=== PATIENT | female | born 1995 | race Caucasian/White ===

== ENCOUNTER 2022-06-20 17:25 | Emergency (ER) | payer BC ==
[~2022-06-20] VITALS: Ht 165.1 cm; Wt 52.0 kg
[2022-06-20 21:00] VITALS: BP 113/71
== END 2022-06-20 21:10 | disposition home or self-care (01) | DRG 552 ==
LOC: ED 17:25
DX: M54.9 Dorsalgia, unspecified (principal); R07.9 Chest pain, unspecified; M79.601 Pain in right arm; V80.010A Animal-rider injured by fall from or being thrown from horse in noncollision accident, initial encounter

== ENCOUNTER 2023-06-25 16:43 | Emergency (ER) | payer BC ==
[~2023-06-25] VITALS: Ht 165.1 cm; Wt 52.0 kg
[2023-06-25] VITALS (12 sets, daily range): BP systolic 92–116; BP diastolic 58–76
[2023-06-25 17:46] LABS: BASO% 0.5 % (0-3); EOS% 0.9 % (0-8); HEMATOCRIT 39.9 % (37.0-47.0); HEMOGLOBIN 12.7 g/dl (12.0-16.0); IMMATURE GRANULOCYTES 0.1 % (0.0-5.0); LYMPH% 27.9 % (15-41); MEAN CELL VOLUME 89.3 fL CALC (80.0-100.0); MEAN CORPUSCULAR HGB 28.4 pG CALC (26.0-32.0); MEAN CORPUSCULAR HGB CONC 31.8 g/dL CAL (32.0-36.0); NEUT# 5.84 thou/uL (2.00-7.15); NEUT% 62.6 % (42-76); RED BLOOD COUNT 4.47 mill/uL (4.20-5.60); RED CELL DISTRI WIDTH 13.6 % (11.5-15.5)
[2023-06-25 18:05] LABS: ALBUMIN 4.4 g/dL (3.2-5.0); ALKALINE PHOSPHATASE 59 u/l (38-126); ANION GAP 11 (6-22 (CALC)); BILIRUBIN, TOTAL 0.7 mg/dL (0.02-1.3); BUN 11 mg/dL (7-17); BUN/CREATININE RATIO 12 (12-20 (CALC)); CARBON DIOXIDE 29 mmol/l (22-30); CHLORIDE 104 mmol/l (95-108); CREATININE 0.9 mg/dL (0.5-1.0); GFR FOR AFR.AMER. > 60 ML/MIN (>=60 (CALC)); GFR OTHER RACES > 60 ML/MIN (>=60 (CALC)); LIPASE 124 u/l (23-300); POTASSIUM 3.2 mmol/l (3.5-5.1); SGOT/AST 48 u/l (14-36); SODIUM 141 mmol/l (137-146); TOTAL PROTEIN 7.1 g/dL (6.3-8.2)
== END 2023-06-25 21:15 | disposition home or self-care (01) | DRG 605 ==
LOC: ED 16:43
PROVIDERS: Family Medicine
DX: S30.0XXA Contusion of lower back and pelvis, initial encounter (principal); S20.229A Contusion of unspecified back wall of thorax, initial encounter; V80.010A Animal-rider injured by fall from or being thrown from horse in noncollision accident, initial encounter; Y93.52 Activity, horseback riding
CPT/HCPCS: Q9967

== ENCOUNTER 2023-11-13 23:12 | Emergency (ER) | payer BC ==
[~2023-11-13] VITALS: Ht 165.1 cm; Wt 50.0 kg
[2023-11-13 23:35] VITALS: BP 120/68
[2023-11-13 23:45] VITALS: BP 103/74
[2023-11-13] MEDS ORDERED: DEX PO (23:49)
[2023-11-13] MEDS ORDERED: AMPHETAMINE PO (23:49)
[2023-11-13] MEDS ORDERED: KETOROLAC TROMETHAMINE 30 MG/ML SDV IV ONE (23:55)
[2023-11-13] MEDS ORDERED: DIATRIZOATE MEGLUMINE & SODIUM 30 ML/BTL BTL PO ONE (23:55)
[2023-11-13] MEDS ORDERED: PROMETHAZINE HCL 25 MG/ML AMP IV ONE (23:55)
[2023-11-13] MEDS ORDERED: SODIUM CHLORIDE 0.9% 1,000 ML IV STA (23:58)
[2023-11-14] VITALS (15 sets, daily range): BP systolic 81–110; BP diastolic 51–78
[2023-11-14 00:42] LABS: BASO% 0.7 % (0-3); EOS% 1.5 % (0-8); IMMATURE GRANULOCYTES 0.2 % (0.0-5.0); LYMPH% 37.3 % (15-41); MEAN CELL VOLUME 88.3 fL CALC (80.0-100.0); MEAN CORPUSCULAR HGB 28.7 pG CALC (26.0-32.0); MEAN CORPUSCULAR HGB CONC 32.5 g/dL CAL (32.0-36.0); MONO% 12.5 % (2-13); NEUT# 2.6 thou/uL (2.00-7.15); NEUT% 47.8 % (42-76); RED BLOOD COUNT 4.53 mill/uL (4.20-5.60); RED CELL DISTRI WIDTH 13.4 % (11.5-15.5)
[2023-11-14 00:48] LABS: ALBUMIN 4.1 g/dL (3.2-5.0); BILIRUBIN, TOTAL 0.7 mg/dL (0.02-1.3); CREATININE 0.9 mg/dL (0.5-1.0); POTASSIUM 3.6 mmol/l (3.5-5.1); TOTAL PROTEIN 7.5 g/dL (6.3-8.2)
[2023-11-14 00:57] LABS: URINE BILIRUBIN - DIPSTICK Negative (NEGATIVE); URINE BLOOD DIPSTICK Negative (NEGATIVE); URINE GLUCOSE - DIPSTICK Negative (NEGATIVE); URINE KETONE 15 mg/dL (NEGATIVE); URINE LEUK ESTERASE Negative (NEGATIVE); URINE NITRITE - DIPSTICK Negative (Negative); URINE PROTEIN - DIPSTICK Negative (NEG-TRACE); URINE SPECIFIC GRAVITY 1.025
[2023-11-14 00:58] LABS: URINE COLOR Yellow
[2023-11-14] MEDS ORDERED: PROMETHAZINE HY25 M1 PO (04:51)
[2023-11-14] MEDS ORDERED: DICYCLOMINE HYD10 MG PO (04:51)
[2023-11-14] MEDS ORDERED: DICYCLOMINE HCL 10 MG/CAP PO ONE (04:55)
[2023-11-14] MEDS ORDERED: DICLOFENAC SODIUM 75 MG/TAB PO ONE (04:55)
== END 2023-11-14 05:03 | disposition home or self-care (01) | DRG 392 ==
LOC: ED 23:12
PROVIDERS: Family Medicine
DX: R10.31 Right lower quadrant pain (principal); R10.32 Left lower quadrant pain; R10.13 Epigastric pain; R10.33 Periumbilical pain; Z20.822 Contact with and (suspected) exposure to COVID-19
CPT/HCPCS: Q9967

== ENCOUNTER 2023-12-22 11:42 | Emergency (ER) | payer BC ==
[~2023-12-22] VITALS: Ht 165.1 cm; Wt 49.1 kg
[2023-12-22] VITALS (9 sets, daily range): BP systolic 97–118; BP diastolic 67–78
[~2023-12-22 11:42] MED LIST: AMPHETAMINE PO; DEX PO; DICYCLOMINE HYD10 MG PO; PROMETHAZINE HY25 M1 PO
[2023-12-22] MEDS ORDERED: SODIUM CHLORIDE 0.9% 1,000 ML IV ONE ×2 (11:55→12:40)
[2023-12-22 12:29] LABS: BASO% 0.7 % (0-3); EOS% 1.7 % (0-8); HEMATOCRIT 35.1 % (37.0-47.0); HEMOGLOBIN 11.4 g/dl (12.0-16.0); IMMATURE GRANULOCYTES 0.2 % (0.0-5.0); LYMPH% 31.3 % (15-41); MEAN CELL VOLUME 88.9 fL CALC (80.0-100.0); MEAN CORPUSCULAR HGB 28.9 pG CALC (26.0-32.0); MEAN CORPUSCULAR HGB CONC 32.5 g/dL CAL (32.0-36.0); MONO% 7.7 % (2-13); NEUT# 3.34 thou/uL (2.00-7.15); NEUT% 58.4 % (42-76); RED BLOOD COUNT 3.95 mill/uL (4.20-5.60); RED CELL DISTRI WIDTH 13.4 % (11.5-15.5)
[2023-12-22 12:49] LABS: ALBUMIN 3.9 g/dL (3.2-5.0); BILIRUBIN, TOTAL 0.4 mg/dL (0.02-1.3); CREATININE 0.8 mg/dL (0.5-1.0); POTASSIUM 3.3 mmol/l (3.5-5.1); TOTAL PROTEIN 6.4 g/dL (6.3-8.2)
[2023-12-22 13:46] LABS: URINE BILIRUBIN - DIPSTICK Negative (NEGATIVE); URINE BLOOD DIPSTICK Negative (NEGATIVE); URINE GLUCOSE - DIPSTICK Negative (NEGATIVE); URINE KETONE Negative (NEGATIVE); URINE LEUK ESTERASE Negative (NEGATIVE); URINE NITRITE - DIPSTICK Negative (Negative); URINE PROTEIN - DIPSTICK Negative (NEG-TRACE); URINE UROBILINOGEN - DIPSTICK 0.2 E.U./dL (0.2)
[2023-12-22 13:49] LABS: URINE COLOR Yellow
== END 2023-12-22 14:04 | disposition home or self-care (01) | DRG 392 ==
LOC: ED 11:42
PROVIDERS: Family Medicine
DX: R11.2 Nausea with vomiting, unspecified (principal); F41.9 Anxiety disorder, unspecified; Z72.0 Tobacco use